=== PATIENT | female | born 1950 | race Caucasian/White ===

== ENCOUNTER 2019-07-31 08:32 | Day surgery (SDC) | payer OTHER ==
[~2019-07-31] VITALS: Ht 159 cm; Wt 59.8 kg
[~2019-07-31 08:32] MED LIST: ALBU90OI61 INH; ARTHRITIS MED; ASPI81EC PO; AZIT500 PO; Colace100 MG PO; HYDACE10B PO; HYDACE5 PO; IRON325 MG PO; NAPR375 PO; TYLENOL PM PO; WARF4 PO; [UNRECOGNIZED DRUG - OTHER]
[2019-07-31] MEDS ORDERED: ALEN70 PO (08:47)
[2019-07-31] MEDS ORDERED: ROSU10TA PO (08:47)
--- NOTE | 2019-07-31 09:13 | NUR ---
History, Chart, Medications and Allergies reviewed before start of procedure.Patient confirms NPO status and agrees with scheduled surgery. Patient states colon prep results clear.Lungs clear T/O to Auscultation.
--- NOTE | 2019-07-31 09:32 | NUR ---
07/31/19 0932 NOY COLEMAN History, Chart, Medications and Allergies reviewed before start of procedure.3-LEAD EKG REVIEWED WITH PHYSICIAN PRIOR TO START OF PROCEDURE.O2 VIA N/C INTACT THROUGHOUT SEDATION/PROCEDURE. MONITOR INTACT WITH CONTINUOUS PULSE OXIMETRY AND INTERMITTENT BP.PATIENT DETERMINED TO BE ASA APPROPRIATE FOR PROPOFOL SEDATION PRIOR TO START OF PROCEDURE BY .
== END 2019-07-31 10:34 | disposition home or self-care (01) ==
LOC: ORSCMMR 08:32 → ORD 09:30 → ORSCMMR 09:30
PROVIDERS: Internal Medicine Gastroenterology
PROC: 0DBN8ZX Excision of Sigmoid Colon, Via Natural or Artificial Opening Endoscopic, Diagnostic (ICD-10-PCS; principal; 2019-07-31 09:30)
PROC: 0DBM8ZX Excision of Descending Colon, Via Natural or Artificial Opening Endoscopic, Diagnostic (ICD-10-PCS; principal; 2019-07-31 09:30)
DX: Z12.11 Encounter for screening for malignant neoplasm of colon (principal); Z80.0 Family history of malignant neoplasm of digestive organs; K63.5 Polyp of colon; K57.30 Diverticulosis of large intestine without perforation or abscess without bleeding; E78.00 Pure hypercholesterolemia, unspecified; Z79.899 Other long term (current) drug therapy
CPT/HCPCS: 88305; J2704; J7120

== ENCOUNTER → 2022-09-26 | Outpatient (CLI) | payer OTHER ==
[~2022-09-26] MED LIST changes: +ALEN70 PO; +ROSU10TA PO
[2022-09-27 11:34] LABS: Candida species (DNA Probe) Negative (NEGATIVE); G. vaginalis (DNA Probe) Negative (NEGATIVE); T. vaginalis (DNA Probe) Negative (NEGATIVE)
== END | disposition home or self-care (01) ==
LOC: LAB 17:32 → LAB SHORT 17:32
PROVIDERS: Obstetrics & Gynecology
DX: N76.0 Acute vaginitis (principal)
CPT/HCPCS: 87480; 87510; 87660

== ENCOUNTER → 2022-10-02 | Outpatient (CLI) | payer OTHER ==
[2022-10-02 13:50] LABS: Source, Urine Clean Catch
[2022-10-02 15:24] LABS: Appearance, Urine Clear (Clear); Bilirubin, Urine Neg (Neg); Blood, Urine 1+ (Neg); Glucose Qualitative, Urine Neg (Neg); Ketones, Urine Neg (Neg); Leukocyte Esterase, Urine Neg (Neg); Nitrite, Urine Neg (Neg); Protein, Urine Neg (Neg); Specific Gravity, Urine 1.015 (1.003-1.022); Urobilinogen, Urine NORM (Normal)
[2022-10-02 15:30] LABS: Color, Urine Pale Yellow (P-Yellow)
[2022-10-02 15:31] LABS: Bacteria Mod /hpf; Red Blood Cells, Urine 0-2 /hpf (0-2); White Blood Cells, Urine 0-2 /hpf (0-5)
[2022-10-02 15:32] LABS: Mucus Light (0-Heavy); Squamous Epithelial Cells Few /hpf (Few)
== END | disposition home or self-care (01) ==
LOC: LAB 13:47 → LAB SHORT 13:47
PROVIDERS: Obstetrics & Gynecology
DX: N39.3 Stress incontinence (female) (male) (principal)
CPT/HCPCS: 81001; 87086

== ENCOUNTER 2022-10-30 12:36 | Day surgery (SDC) | payer OTHER ==
[~2022-10-30] VITALS: Ht 157.5 cm; Wt 58.7 kg
[~2022-10-30 12:36] MED LIST changes: +ANORO ELLIPTA1 EACH INH; +ASPI81CH PO; +LOSA25 PO; +OXYC5 PO; +SERT50 PO
--- NOTE | 2022-10-30 17:36 | NUR ---
WHEN LEAVING PACU AND HEADED TO SURG FLOOR PT STATES "I FEEL LIKE I JUST PEED ON MYSELF". PT HAD LUIS EDUARDO RED DRAINAGE COMING FROM VAGINA. DR DIAZ NOTIFIED. DR DIAZ AT [facility] INSERTING VAGINAL PACKING. PT TOLERATTED WELL. PT SMILING & JOKING. AFEBRILE/VSS.
--- NOTE | 2022-10-30 19:29 | NUR ---
ARRIVAL S/P A&P WITH SLING PT ABLE TO TRANSFER SELF TO BED FROM [facility] SMALL AMOUNT OF DRAINAGE ON KATHARINA PAD. WICK FROM PACKING IS VISIBLE. PT DENIES PAIN OR NAUSEA, ABDOMEN SOFT ON PALPATION. TOLERATING PO WELL AT THIS TIME, CALLS APPROPRIATLY. DELUNA IN PLACE, YELLOW IN COLOR.
--- NOTE | 2022-10-31 05:11 | NUR ---
SHIFT SUMMARY PT A&OX4, PLEASANT AND COOPERATIVE WITH CARE. NO ACUTE CHANGES, VSS. ONLY SLIGHT PAIN, CONTROLLED WITH SCHEDULED TYLENOL. TOLERATING PO, NO NAUSEA. CHANGED KATHARINA-PAD TWICE. FIRST PAD WITH MODERATE SANGUINEOUS DRAINAGE, SECOND PAD WITH ONLY LIGHT. DELUNA PATIENT AND DRAINING TO GRAVITY, YELLOW/CLEAR. CALLS APPROPRIATELY, CALL LIGHT WITHIN REACH.
--- NOTE | 2022-10-31 06:28 | NUR ---
PACKING REMOVED, MODERATELY SATURATED. PT SUSAN WELL. NEW KATHARINA PAD PLACED.
[2022-10-31] MEDS ORDERED: ACET325 PO (07:52)
[2022-10-31] MEDS ORDERED: IBUP400 PO (07:52)
[2022-10-31] MEDS ORDERED: COLACE100 MG PO (07:52)
[2022-10-31] MEDS ORDERED: MIRALAX17 GM PO (07:53)
--- NOTE | 2022-10-31 09:47 | NUR ---
discharge POD 1 A&P WITH SLING PT VOIDING WELL, TOLERATING PO WELL. NO NAUSEA OR PAIN. AMBULATING INDEPENDENTLY IN ROOM. PT HAS PRESCRIPTIONS PICKED UP PRIOR TO PROCEDURE. ALL INSTRUCTIONS GONE OVER WITH PATIENT. IV REMOVED WNL.
== END 2022-10-31 10:33 | disposition home or self-care (01) ==
LOC: ORSCMMR 12:36 → ORD 13:45 → ORSCMMR 13:45 → SURS 18:14 → ORSCMMR 10-31 10:33
PROVIDERS: Obstetrics & Gynecology
PROC: 0TSD0ZZ Reposition Urethra, Open Approach (ICD-10-PCS; principal; 2022-10-30 13:45)
PROC: 0JQC0ZZ Repair Pelvic Region Subcutaneous Tissue and Fascia, Open Approach (ICD-10-PCS; principal; 2022-10-30 13:45)
PROC: 0UQF0ZZ Repair Cul-de-sac, Open Approach (ICD-10-PCS; principal; 2022-10-30 13:45)
DX: N81.11 Cystocele, midline (principal); N81.6 Rectocele; N81.5 Vaginal enterocele; N39.3 Stress incontinence (female) (male); I10 Essential (primary) hypertension; J44.9 Chronic obstructive pulmonary disease, unspecified; Z87.891 Personal history of nicotine dependence; Z79.899 Other long term (current) drug therapy; Z79.82 Long term (current) use of aspirin
CPT/HCPCS: A9270; C1771; J0690; J1100; J1885; J2405; J2704; J3010; J7120

== ENCOUNTER → 2022-12-12 | Outpatient (CLI) | payer OTHER ==
[~2022-12-12] MED LIST changes: +ACET325 PO; +COLACE100 MG PO; +IBUP400 PO; +MIRALAX17 GM PO
[2022-12-13 11:01] LABS: Candida species (DNA Probe) Negative (NEGATIVE); G. vaginalis (DNA Probe) Positive (NEGATIVE); T. vaginalis (DNA Probe) Negative (NEGATIVE)
== END | disposition home or self-care (01) ==
LOC: LAB SHORT 17:45 → LAB 17:45
PROVIDERS: Obstetrics & Gynecology
DX: N89.8 Other specified noninflammatory disorders of vagina (principal)
CPT/HCPCS: 87480; 87510; 87660

== ENCOUNTER → 2023-06-04 | Outpatient (CLI) | payer OTHER ==
[2023-06-05 02:58] LABS: Adenovirus F 40/41 Not Detected (NOT DETECT); Astrovirus Not Detected (NOT DETECT); Campylobacter Sp Not Detected (NOT DETECT); Cryptosporidium Not Detected (NOT DETECT); Cyclospora Cayetanensis Not Detected (NOT DETECT); E. Coli O157 Not Detected (NOT DETECT); Entamoeba Histolytica Not Detected (NOT DETECT); Enteroaggregative E. coli-EAEC Not Detected (NOT DETECT); Enteropathogenic E. coli-EPEC Not Detected (NOT DETECT); Enterotoxigenic E. coli-ETEC Not Detected (NOT DETECT); Giardia Lamblia Not Detected (NOT DETECT); Norovirus GI/GII Not Detected (NOT DETECT); Plesiomonas Shigelloides Not Detected (NOT DETECT); Rotavirus A Not Detected (NOT DETECT); Salmonella Sp Not Detected (NOT DETECT); Sapovirus Not Detected (NOT DETECT); Shiga Toxin-prod E. coli-STEC Not Detected (NOT DETECT); Shigella/Enteroin E. coli-EIEC Not Detected (NOT DETECT); Vibrio Cholerae Not Detected (NOT DETECT); Vibrio Sp Not Detected (NOT DETECT); Yersinia Enterocolitica Not Detected (NOT DETECT)
== END | disposition home or self-care (01) ==
LOC: LAB SHORT 08:00 → LAB 08:00
PROVIDERS: Physician Assistant
DX: A04.71 Enterocolitis due to Clostridium difficile, recurrent (principal)
CPT/HCPCS: 36415; 87507